=== PATIENT | female | born 1990 | race Caucasian/White ===

== ENCOUNTER 2016-08-23 06:46 | Day surgery (SDC) | payer BC, MEDICAID ==
[2016-08-23] VITALS (10 sets, daily range): BP systolic 104–131; BP diastolic 56–88; PULSE 74–94; RESP 17–25; Ht 152.4 cm; Wt 45.0 kg
[~2016-08-23] VITALS: Ht 152.4 cm; Wt 45.0 kg
[2016-08-23] MEDS ORDERED: CEFAZOLIN 1 GM INJ ONE (07:00)
[2016-08-23] MEDS ORDERED: CEFAZOLIN 2 GM/50 ML (PMX) 50 ML IVPB SCH (07:00)
[2016-08-23] MEDS ORDERED: SOD CHLORIDE 0.9% 1,000 ML IV SCH (07:00)
[2016-08-23 08:03] LABS: INR 0.96; PROTIME 12.8 Sec (12.2-14.2)
[2016-08-23 08:04] LABS: PARTIAL THROMBOPLASTIN TIME 30.8 Sec (25.0-35.0)
[2016-08-23 08:12] LABS: BASOPHIL # 0.1 10^3/ul (0.0-0.1); BASOPHILS % 0.5 % (0.0-2.0); EOSINOPHILS # 0.3 10^3/ul (0.0-0.5); EOSINOPHILS % 3.1 % (0.0-7.0); HEMATOCRIT 39.5 % (37.0-47.0); HEMOGLOBIN 13.5 g/dl (12.0-16.0); LYMPHOCYTES # 1.3 10^3/ul (0.8-2.9); LYMPHOCYTES % 14.3 % (15.0-51.0); MEAN CORPUSCULAR HEMOGLOBIN 31.5 pg (29.0-33.0); MEAN CORPUSCULAR HGB CONC 34.1 g/dl (32.0-37.0); MEAN CORPUSCULAR VOLUME 92.4 fl (82.0-101.0); MEAN PLATELET VOLUME 9.1 fl (7.4-10.4); MONOCYTE # 0.4 10^3/ul (0.3-0.9); MONOCYTES % 4.2 % (0.0-11.0); NEUTROPHIL # 7.2 10^3/ul (1.6-7.5); NEUTROPHILS % 77.9 % (39.0-77.0); PLATELET COUNT 308 10^3/UL (140-440); RED BLOOD COUNT 4.27 10^6/ul (4.20-5.40); RED CELL DISTRIBUTION WIDTH 12.8 % (11.5-14.5); UNCORRECTED WBC 9.3 10^3/ul (4.8-10.8); WHITE BLOOD COUNT 9.3 10^3/ul (4.8-10.8)
[2016-08-23 08:16] LABS: CONDITION 1
[2016-08-23 08:23] LABS: CALCIUM 9.3 mg/dl (8.4-10.2); CREATININE 0.56 mg/dl (0.44-1.00); POTASSIUM 4.3 mmol/L (3.5-5.1)
[2016-08-23] MEDS ORDERED: MIDAZOLAM 1 MG/ML 2 ML INJ ONE (08:38)
[2016-08-23] MEDS ORDERED: LIDOCAINE 2% (SDV) 5 ML INJ ONE (08:38)
[2016-08-23] MEDS ORDERED: PROPOFOL 20 ML ONE (08:38)
[2016-08-23] MEDS ORDERED: DEXAMETHASONE 4 MG/ML 1 ML INJ ONE (09:14)
[2016-08-23] MEDS ORDERED: FENTAnyl 50 MCG/ML VIAL ONE (09:14)
[2016-08-23] MEDS ORDERED: ONDANSETRON 4 MG INJ ONE (09:14)
[2016-08-23] MEDS ORDERED: METOCLOPRAMIDE 10 MG INJ ONE (09:14)
[2016-08-23] MEDS ORDERED: FENTAnyl 50 MCG/ML VIAL IV PRN (09:30)
[2016-08-23] MEDS ORDERED: MEPERIDINE 25 MG INJ IV PRN (09:30)
[2016-08-23] MEDS ORDERED: HYDROmorphONE (0.2 MG/ML) 10ML SYG IV PRN (09:30)
[2016-08-23] MEDS ORDERED: PROCHLORPERAZINE 10 MG INJ IV PRN (09:30)
[2016-08-23] MEDS ORDERED: ONDANSETRON 4 MG INJ IV PRN (09:30)
[2016-08-23] MEDS ORDERED: OXYCODONE/ACETAMINOPHEN (5/325) TAB PO PRN (09:30)
[2016-08-23] MEDS ORDERED: EPHEDrine SULFATE 50 MG/5 ML SYG ONE (09:47)
[2016-08-23] MEDS ORDERED: HYDROCODONE/APAP (7.5/325) TAB PO PRN (10:00)
--- NOTE | 2016-08-23 11:48 | OPR ---
DATE OF OPERATION: 08/23/2016 PREOPERATIVE DIAGNOSIS: Right breast mass, probable fibroadenoma. POSTOPERATIVE DIAGNOSIS: Right breast mass, probable fibroadenoma. OPERATION PERFORMED: Excision of right breast mass. ANESTHESIA: General. ANESTHESIOLOGIST: Tati Martins SURGEON: Rajesh Davila MD SHEARER OPERATOR: Parveen Tejada MD INDICATIONS FOR PROCEDURE: The patient is a 26-year-old female who presented with a palpable mass i n the subareolar location approximately the 11 o'clock position of the right breast. Clinically, it was consistent with probable fibroadenoma. She was counseled as to the risks versus benefits of ex cision. She consented and was scheduled for surgery. DESCRIPTION OF PROCEDURE: The patient was brought to the operating theater, placed under general an esthesia. The right breast was prepped and draped in the usual sterile fashion. A periareolar inci rajan was made from the 12 o'clock location to approximately the 8 o'clock location. Subcutaneous ti ssue was dissected with cautery. Within the breast parenchyma, a well-circumscribed mass consistent with probable benign process such as fibroadenoma or benign phyllodes tumor was identified. It was enucleated with a gloved finger, removed, and sent for permanent pathologic analysis. Wound was ir rigated. Minimal bleeding was controlled with cautery. The area was infiltrated with 0.5% Marcaine local anesthetic with epinephrine, and the skin incision was then closed with 5-0 PDS in subcuticul ar fashion. Dermabond was then applied. The patient tolerated the procedure well. The estimated b lood loss was 10 mL. There were no complications. The patient was transported in stable condition to the recovery room where a circumferential compression dressing was applied. Dictated By: RAJESH DAVILA MD TL/DALTON Conf#: [id number] DID#: [id number]
== END 2016-08-23 11:20 | disposition home or self-care (01) ==
LOC: SDS 06:46
PROVIDERS: ATTEND Surgery Surgical Oncology
DX: N63 Unspecified lump in breast (principal); F41.9 Anxiety disorder, unspecified
CPT/HCPCS: 19120; 80048; 84703; 85025; 85610; 85730; 88307; J0690; J1100; J2250; J2405; J2765; J3010; Z7512; Z7610

== ENCOUNTER 2016-12-19 13:09 | Emergency (ER) | payer BC ==
[~2016-12-19] VITALS: Ht 162.6 cm; Wt 56.8 kg
[2016-12-19 13:19] VITALS: Ht 162.6 cm; Wt 56.8 kg
[2016-12-19] MEDS ORDERED: KETOROLAC 60 MG INJ IM STA (13:36)
[2016-12-19] MEDS ORDERED: ONDANSETRON (ODT) 4 MG TAB ODT STA (13:36)
[2016-12-19 13:53] LABS: ADD SCAN DIFF NO
[2016-12-19 13:56] LABS: BASOPHILS % 0.3 % (0.0-2.0); EOSINOPHILS # 0.2 10^3/ul (0.0-0.5); HEMATOCRIT 36.8 % (37.0-47.0); HEMOGLOBIN 12.1 g/dl (12.0-16.0); LYMPHOCYTES # 1.5 10^3/ul (0.8-2.9); LYMPHOCYTES % 18.3 % (15.0-51.0); MEAN CORPUSCULAR HEMOGLOBIN 30.9 pg (29.0-33.0); MEAN CORPUSCULAR HGB CONC 32.9 g/dl (32.0-37.0); MEAN CORPUSCULAR VOLUME 93.9 fl (82.0-101.0); MEAN PLATELET VOLUME 9.8 fl (7.4-10.4); MONOCYTE # 0.2 10^3/ul (0.3-0.9); MONOCYTES % 2.9 % (0.0-11.0); NEUTROPHIL # 6.1 10^3/ul (1.6-7.5); NEUTROPHILS % 76.2 % (39.0-77.0); PLATELET COUNT 292 10^3/UL (140-415); RED BLOOD COUNT 3.92 10^6/ul (4.20-5.40); RED CELL DISTRIBUTION WIDTH 12.8 % (11.5-14.5)
[2016-12-19 14:15] LABS: ADD UMIC YES; URINE BILIRUBIN (Dip) 1+ (NEGATIVE); URINE BLOOD (Dip) NEGATIVE (NEGATIVE); URINE COLOR YELLOW (YELLOW); URINE GLUCOSE (Dip) NEGATIVE (NEGATIVE); URINE KETONES (Dip) TRACE (NEGATIVE); URINE LEUKOCYTE ESTERASE (Dip) TRACE (NEGATIVE); URINE NITRITE (Dip) NEGATIVE (NEGATIVE); URINE TOTAL PROTEIN (Dip) TRACE (NEGATIVE); URINE UROBILINOGEN (Dip) 0.2 E.U./dL (0.1-1.0)
[2016-12-19 14:17] LABS: ALBUMIN 4.7 g/dl (3.3-4.9); POTASSIUM 3.4 mmol/L (3.5-5.1)
[2016-12-19 14:19] LABS: BILIRUBIN,INDIRECT 1.5 mg/dl (0-1.1); BILIRUBIN,TOTAL 1.5 mg/dl (0.2-1.3); CREATININE 0.65 mg/dl (0.44-1.00)
[2016-12-19 14:20] LABS: ALBUMIN/GLOBULIN RATIO 1.38; CALCIUM 9.3 mg/dl (8.4-10.2); TOTAL PROTEIN 8.1 g/dl (6.1-8.1)
--- NOTE | 2016-12-19 14:27 | RADRPT ---
PROCEDURE: US Pelvis CLINICAL INDICATION: Abdominal Pain, pelvic pain TECHNIQUE: Multiple sonographic images of the pelvis were obtained utilizing a transabdominal and endovaginal technique. The images were reviewed on a PACS workstation. COMPARISON: None. LMP: 11/19/2016 FINDINGS: The uterus is retroverted and measures 8.9 x 4.5 x 2.9 cm. The endometrial echo complex measures 2 mm in thickness. The uterus is heterogeneous and the junctional zone between the endometrium and my ometrium is indistinct. The right ovary measures 2.9 x 1.9 x 2.3 cm. The left ovary measures 2.5 x 2.1 x 2.0 cm. There is no rmal vascular flow in both ovaries. No significant ovarian lesions are seen. No significant pelvic free fluid is identified. IMPRESSION: Heterogeneous uterus with indistinct junctional zone is nonspecific, but suggests adenomyosis. Clin ical correlation is recommended. Bilateral ovaries and adnexa are unremarkable. RPTAT: EE Physician Almas Date Time Electronically viewed and signed by Physician Almas on 12/19/2016 14:27 /
[2016-12-19 14:29] LABS: BACTERIA,URINE FEW; ICTOTEST NEGATIVE (NEGATIVE); MUCUS,URINE MODERATE; URINE RBCS 0-2 /HPF (0)
[2016-12-19] MEDS ORDERED: ONDA4TAB14 PO (14:37)
[2016-12-19] MEDS ORDERED: IBUP-1542 PO (14:37)
[2016-12-19] MEDS ORDERED: HYDR-906 PO (14:37)
--- NOTE | 2016-12-19 14:40 | ERD ---
ER Documentation Chief Complaint Date/Time DATE: 12/19/16 TIME: 14:38 Chief Complaint lower ap x months; n/v; hx of ovarian cyst HPI 26-year-old female is here complaining of lower pelvic pain that she has had for over one year but got worse in the last 3 days. Pain is bilateral. She admits to nausea and vomiting. Her last menstrual period she thinks is 1 month ago. Denies any dysuria hematuria or increased urinary frequency. Denies any fever. She does state she has a history of ovarian cysts. She has not taken any medication for pain. ROS All systems reviewed and are negative except as per history of present illness. Medications Home Meds Active Scripts Ondansetron (Ondansetron Odt) 4 Mg Tab.rapdis, 4 MG PO Q6H Y for NAUSEA AND/OR VOMITING, #20 TAB Prov:ALANA OMER PA-C 12/19/16 Hydrocodone/Acetaminophen ([place] 5-325 Tablet) 1 Each Tablet, 1 EACH PO Q6, #20 TAB Prov:ALANA OMER PA-C 12/19/16 Ibuprofen* (Ibuprofen*) 600 Mg Tablet, 600 MG PO Q6, #30 TAB Prov:ALANA OMER PA-C 12/19/16 Allergies Allergies: Coded Allergies: diphenhydramine (Unverified Allergy, Unknown, UNKNOWN, 08/22/16) PMhx/Soc History of Surgery: Yes (R BREAST BX) Anesthesia Reaction: No Hx Neurological Disorder: No Hx Respiratory Disorders: No Hx Cardiac Disorders: No Hx Psychiatric Problems: No Hx Miscellaneous Medical Probl: No Hx Alcohol Use: No Hx Substance Use: No Hx Tobacco Use: No FmHx Family History: No diabetes Physical Exam Vitals Vital Signs Date Time Temp Pulse Resp B/P Pulse Ox O2 Delivery O2 Flow Rate FiO2 12/19/16 13:19 97.9 80 18 107/71 98 Physical Exam General: well developed, well nourished, alert, nontoxic, no distress Head: normocephalic, atraumatic Neck: Supple, nontender, no lymphadenopathy, no midline tenderness Respiratory: Clear to auscaultation bilaterally, speaks in full sentences, no use of accesory muscles or labored breathing, no rales, ronchi, or wheezing Cardiovascular: RRR, No murmurs GI: soft, non tender, non distended, negative murphys sign, negative mcburneys point tenderness, no cva tenderness bilaterally, no rebound or guarding Back: no midline tenderness, no step offs or bony abnormalities, sensation to light touch in tact Result Diagram: 12/19/16 1338 12/19/16 1338 Results 24 hrs Laboratory Tests Test 12/19/16 13:38 12/19/16 13:56 White Blood Count 8.010^3/ul Red Blood Count 3.9210^6/ul Hemoglobin 12.1g/dl Hematocrit 36.8% Mean Corpuscular Volume 93.9fl Mean Corpuscular Hemoglobin 30.9pg Mean Corpuscular Hemoglobin Concent 32.9g/dl Red Cell Distribution Width 12.8% Platelet Count 04453^3/UL Mean Platelet Volume 9.8fl Neutrophils % 76.2% Lymphocytes % 18.3% Monocytes % 2.9% Eosinophils % 2.0% Basophils % 0.3% Nucleated Red Blood Cells % 0.0/100WBC Neutrophils # 6.110^3/ul Lymphocytes # 1.510^3/ul Monocytes # 0.210^3/ul Eosinophils # 0.210^3/ul Basophils # 0.010^3/ul Nucleated Red Blood Cells # 0.010^3/ul Sodium Level 143mmol/L Potassium Level 3.4mmol/L Chloride Level 103mmol/L Carbon Dioxide Level 26mmol/L Anion Gap 17 Blood Urea Nitrogen 15mg/dl Creatinine 0.65mg/dl Glucose Level 84mg/dl Calcium Level 9.3mg/dl Total Bilirubin 1.5mg/dl Direct Bilirubin 0.00mg/dl Indirect Bilirubin 1.5mg/dl Aspartate Amino Transf (AST/SGOT) 19IU/L Alanine Aminotransferase (ALT/SGPT) 21IU/L Alkaline Phosphatase 50IU/L Total Protein 8.1g/dl Albumin 4.7g/dl Globulin 3.40g/dl Albumin/Globulin Ratio 1.38 Lipase 26U/L Urine Color YELLOW Urine Clarity CLEAR Urine pH 6.0 Urine Specific [place] 1.025 Urine Ketones TRACE Urine Nitrite NEGATIVE Urine Bilirubin 1+ Urine Ictotest NEGATIVE Urine Urobilinogen 0.2 E.U./dL Urine Leukocyte Esterase TRACE Urine Microscopic RBC 0-2/HPF Urine Microscopic WBC 2-5/HPF Urine Epithelial Cells FEW Urine Bacteria FEW Urine Mucus MODERATE Urine Hemoglobin NEGATIVE Urine Glucose NEGATIVE% Urine Total Protein TRACE Current Medications Medications (Trade) Dose Ordered Sig/Sage Route PRN Reason Start Time Stop Time Status Last Admin Dose Admin Ketorolac Tromethamine (Toradol) 30 mg ONCE STAT IM 12/19/16 13:36 12/19/16 13:38 DC 12/19/16 14:21 Ondansetron HCl (Zofran Odt) 4 mg ONCE STAT ODT 12/19/16 13:36 12/19/16 13:38 DC 12/19/16 14:20 Procedures/MDM This 18-year-old female has bilateral pelvic pain. She is afebrile and in no distress and his pain is chronic and she has had it for over one year. I doubt she has PID or ovarian torsion. Ultrasound shows she has adenomyosis. Her labs were unremarkable otherwise. She was discharged with copies of all of her labs and ultrasound reports she can follow with primary care as well as prescription for Zofran and pain medication. She was also given a list of OB/ [facility] clinics where she can follow-up. Recommended this patient follow up with her primary care doctor within 48 hours or return to the emergency room for any worsening of symptoms. However this time I do believe there is suitable for outpatient management. I answered all their questions and they agreed with the plan and were discharged home. Departure Diagnosis: Primary Impression: Adenomyosis Condition: Stable Patient Instructions: Pelvic Pain, Unknown Cause Referrals: [facility] [place] [address] [facility] [address] [place], [place] [phone] OFFICE FAX TRISH MARTÍNEZ [address] [place], [place] [phone] [address] [place] [place] [address] [place], [place] [phone] CUATE MCNALLY [address] [facility], [address] [address] [address] [address] [place], [place] [phone] [facility] [address] [place], [place] [address] [address] [facility] [id number] - [place] [address], [facility] [phone] HUBBARD, ARVIND [address] [facility]. [address], [facility] [address] [address], [facility] [address] [place], [place] [phone] Additional Instructions: Call your primary care doctor TOMORROW for an appointment during the next 1-2 days.See the doctor sooner or return here if your condition worsens before your appointment time. ALANA OMER PA-C December 19, 2016 14:40
== END 2016-12-19 14:48 | disposition home or self-care (01) ==
LOC: FTE 13:09
DX: N80.0 Endometriosis of uterus (principal); R11.2 Nausea with vomiting, unspecified
CPT/HCPCS: 36415; 76856; 80053; 81001; 83690; 85025; 96372; 99285; J1885; Z7610; 81003

== ENCOUNTER 2017-05-07 10:38 | Emergency (ER) | END 2017-05-07 14:36 | disposition home or self-care (01) | DX: R10.32 Left lower quadrant pain (principal); R10.2 Pelvic and perineal pain ==

== ENCOUNTER 2017-07-02 17:30 | Emergency (ER) | payer BC ==
[~2017-07-02] VITALS: Ht 157.5 cm; Wt 48.0 kg
[~2017-07-02 17:30] MED LIST: HYDR-906 PO; IBUP-1542 PO; ONDA4TAB14 PO
[2017-07-02 17:32] VITALS: Ht 157.5 cm; Wt 48.0 kg
--- NOTE | 2017-07-02 19:33 | ERD ---
ER Documentation Chief Complaint Chief Complaint c/o vomiting, pt has coffe on her hand at intake HPI 26-year-old female presents to emergency department for complaints of vomiting episodes, on and off lower abdominal pain on and off for the last 1 week, worse in the last 2 days. Patient had 2 episodes of vomiting today, 2 opacities of vomiting yesterday. Patient does not have any blood in his stool or black site. Patient is vomited blood in the vomit. Patient does not have any sick contacts. Last menstruation was May 18, 2019, as always had irregular periods. Patient denies any vaginal bleeding at this time. ROS All systems reviewed and are negative except as per history of present illness. Medications Home Meds Active Scripts Ondansetron (Ondansetron Odt) 4 Mg Tab.rapdis, 4 MG PO Q6H Y for NAUSEA AND/OR VOMITING, #20 TAB Prov:ALANA OMER PA-C 12/19/16 Hydrocodone/Acetaminophen ([place] 5-325 Tablet) 1 Each Tablet, 1 EACH PO Q6, #20 TAB Prov:ALANA OMER PA-C 12/19/16 Ibuprofen* (Ibuprofen*) 600 Mg Tablet, 600 MG PO Q6, #30 TAB Prov:ALANA OMER PA-C 12/19/16 Allergies Allergies: Coded Allergies: diphenhydramine (Unverified Allergy, Unknown, UNKNOWN, 08/22/16) PMhx/Soc History of Surgery: Yes (R BREAST BX) Anesthesia Reaction: No Hx Neurological Disorder: No Hx Respiratory Disorders: No Hx Cardiac Disorders: No Hx Psychiatric Problems: No Hx Miscellaneous Medical Probl: No Hx Alcohol Use: No Hx Substance Use: No Hx Tobacco Use: No FmHx Family History: No coronary disease, No diabetes, No other Physical Exam Vitals Vital Signs Date Time Temp Pulse Resp B/P Pulse Ox O2 Delivery O2 Flow Rate FiO2 07/02/17 17:32 98.1 100 18 118/71 99 Physical Exam GENERAL: The patient is well developed and appropriate for usual state of health, in no apparent distress. CHEST: Clear to auscultation bilaterally. There are no rales, wheezes or rhonchi. HEART: Regular rate and rhythm. No murmurs, clicks, rubs or gallops. No S3 or S4. ABDOMEN: Soft, nontender and nondistended. Good bowel sounds. No rebound or guarding. No gross peritonitis. No gross organomegaly or masses. No Johnson sign or McBurney point tenderness. BACK: No midline or flank tenderness. EXTREMITIES: Equal pulses bilaterally. There is no peripheral clubbing, cyanosis or edema. No focal swelling or erythema. Full range of motion. Grossly neurovascularly intact. NEURO: Alert and oriented. Cranial nerves 2-12 intact. Motor strength in all 4 extremities with 5/5 strength. Sensation grossly intact. Normal speech and gait. SKIN: There is no apparent rash or petechia. The skin is warm and dry. HEMATOLOGIC AND LYMPHATIC: There is no evidence of excessive bruising or lymphedema. No gross cervical, axillary, or inguinal lymphadenopathy. Result Diagram: 07/02/17200707/02/172007 Results 24 hrs Laboratory Tests Test 07/02/17 20:08 White Blood Count 11.910^3/ul Red Blood Count 3.8710^6/ul Hemoglobin 12.1g/dl Hematocrit 36.2% Mean Corpuscular Volume 93.5fl Mean Corpuscular Hemoglobin 31.3pg Mean Corpuscular Hemoglobin Concent 33.4g/dl Red Cell Distribution Width 12.5% Platelet Count 04049^3/UL Mean Platelet Volume 10.1fl Neutrophils % 81.4% Lymphocytes % 14.4% Monocytes % 2.9% Eosinophils % 0.7% Basophils % 0.2% Nucleated Red Blood Cells % 0.0/100WBC Neutrophils # 9.710^3/ul Lymphocytes # 1.710^3/ul Monocytes # 0.310^3/ul Eosinophils # 0.110^3/ul Basophils # 0.010^3/ul Nucleated Red Blood Cells # 0.010^3/ul Urine Color YELLOW Urine Clarity CLEAR Urine pH 5.0 Urine Specific [place] 1.024 Urine Ketones TRACEmg/dL Urine Nitrite NEGATIVEmg/dL Urine Bilirubin NEGATIVEmg/dL Urine Urobilinogen 2+mg/dL Urine Leukocyte Esterase NEGATIVELeu/ul Urine Hemoglobin NEGATIVEmg/dL Urine Glucose NEGATIVEmg/dL Urine Total Protein NEGATIVEmg/dl Sodium Level 142mmol/L Potassium Level 3.8mmol/L Chloride Level 104mmol/L Carbon Dioxide Level 26mmol/L Anion Gap 16 Blood Urea Nitrogen 12mg/dl Creatinine 0.66mg/dl Glucose Level 110mg/dl Calcium Level 9.5mg/dl Total Bilirubin 1.7mg/dl Direct Bilirubin 0.00mg/dl Indirect Bilirubin 1.7mg/dl Aspartate Amino Transf (AST/SGOT) 20IU/L Alanine Aminotransferase (ALT/SGPT) 35IU/L Alkaline Phosphatase 51IU/L Total Protein 7.4g/dl Albumin 4.7g/dl Globulin 2.70g/dl Albumin/Globulin Ratio 1.74 Lipase 101U/L Current Medications Medications (Trade) Dose Ordered Sig/Sage Route PRN Reason Start Time Stop Time Status Last Admin Dose Admin Ondansetron HCl (Zofran Odt) 4 mg ONCE STAT ODT 07/02/17 20:01 07/02/17 20:02 DC 07/02/17 20:36 Patient was given Zofran here in the emergency department. After treatment, patient was able to tolerate po fluids here in the emergency department without any vomiting. There is no signs and symptoms of dehydration. PROCEDURE: CT ABDOMEN AND PELVIS WITHOUT CONTRAST. CLINICAL INDICATION: Abdominal pain TECHNIQUE: CT scan of the abdomen and pelvis without contrast was performed on a multidetector high-resolution CT scanner. The patient was scanned without intravenous contrast. Coronal and sagittal reformatted images were obtained from the axial source images. Images were reviewed on a high-resolution PACS workstation. The total exam CTDI equals 3.9 mGy and the total exam DLP equals 182.88 mGy-cm. One or more of the following dose reduction techniques were used: Automated exposure control. Adjustment of the mA and/or kV according to patient size. Use of iterative reconstruction technique. DICOM images are available COMPARISON: May 07, 2017 FINDINGS: CT abdomen: The lung bases are clear. The heart size is within limits. There is no significant pericardial effusion. Hepatic morphology is within normal limits. There is a 2.0 cm lesion within the right lobe liver as well as a 1.2 cm within the posterior right lobe liver. The gallbladder is within normal limits. No evidence of intrahepatic or extrahepatic biliary dilatation. The spleen is unremarkable. The pancreas is borderline prominent. Both adrenal glands are within normal limits. Both kidneys are in normal anatomic position. No evidence of obstruction or hydronephrosis. No gross renal/ureteric calculi. The visualized GI tract demonstrate normal caliber loops of small and large bowel. No evidence of bowel obstruction. The appendix is not clearly identified. Several fluid filled loops of small bowel noted within the lower abdomen and pelvis. The unenhanced aorta is unremarkable. There is no significant retroperitoneal lymphadenopathy. CT pelvis: The bladder is within limits. The uterus is mildly prominent. Small amount of free fluid within pelvis. Rectosigmoid colon demonstrates stool. No gross evidence of pelvic lymphadenopathy. The visualized osseous structures, appears to be within normal limits. IMPRESSION: 1. No evidence of bowel obstruction. There are several fluid filled loops of small bowel within the lower abdomen, which may represent gastroenteritis. The appendix is not clearly identified. Evaluation of the abdomen/pelvis is limited due to paucity of intra-abdominal fat. If clinical symptoms persist, or suspicion remains recommend follow-up CT scan with IV and oral contrast. 2. Round 1.2 and 2.0 cm hypodense lesion within the right lobe liver. Possible hemangiomas. Recommend follow-up CT scan with IV contrast following a multi phase liver protocol. 3. Mild prominence of the pancreas. Although this can be within normal limits, consider correlation with amylase and lipase levels to exclude the possibility of early pancreatitis, if clinically indicated. RPTAT: AAPP Physician Luke Date Time Electronically viewed and signed by Physician Luke on 07/02/2017 22:33 JL/ Procedures/MDM Medical Decision Making: Symptoms of abdominal pain nonspecific at this time, most likely is from gastroenteritis is seen in the CT scan abdomen and pelvis, can be also from the right ovarian cyst no symptoms of torsion. There is low suspicion for abdominal emergencies at this time. Patients abdominal exam is normal at this time. Patients radiology exam does not show any abdominal emergencies at this time IV contrast or oral contrast CT scan not indicated at this time since patient's pain is controlled.. There is low suspicion for appendicitis, cholecystitis, abdominal aortic aneurysms or peritonitis at this time. There is low suspicion for sepsis. Patient appears well and is hemodynamically stable. Disposition: Home. Condition: Stable Prescription Bentyl, [place] ibuprofen Zofran Instructions: Patient is advised to take medications as prescribed. Patient is advised to rest, increase fluid intake and do brat diet for next 1-2 days and progress as tolerated. Patient is advised that if symptoms are worse, severe abdominal pain, uncontrolled vomiting, high fever, severe flank pain, worst signs and symptoms, to return to the emergency department immediately. Otherwise, patient can follow up with primary care doctor in 5-7 days. Disclaimer: Inadvertent spelling and grammatical errors are likely due to EHR/ dictation software use and do not reflect on the overall quality of patient care. Also, please note that the electronic time recorded on this note does not necessarily reflect the actual time of the patient encounter. Departure Diagnosis: Primary Impression: Viral gastroenteritis Additional Impression: Right ovarian cyst Condition: Stable Patient Instructions: Gastroenteritis, Viral (6Y-Adult), Ovarian Cyst Additional Instructions: Patient is advised to take medications as prescribed. Patient is advised to rest , increase fluid intake and do brat diet for next 1-2 days and progress as tolerated. Patient is advised that if symptoms are worse, severe abdominal pain , uncontrolled vomiting, high fever, severe flank pain, worst signs and symptoms , to return to the emergency department immediately. Otherwise, patient can follow up with primary care doctor in 5-7 days. JIGNA OLIVAS NP Jul 02, 2017 19:33
[2017-07-02] MEDS ORDERED: ONDANSETRON (ODT) 4 MG TAB ODT STA (20:01)
[2017-07-02 20:30] LABS: BASOPHILS % 0.2 % (0.0-2.0); EOSINOPHILS # 0.1 10^3/ul (0.0-0.5); EOSINOPHILS % 0.7 % (0.0-7.0); HEMATOCRIT 36.2 % (37.0-47.0); HEMOGLOBIN 12.1 g/dl (12.0-16.0); LYMPHOCYTES # 1.7 10^3/ul (0.8-2.9); LYMPHOCYTES % 14.4 % (15.0-51.0); MEAN CORPUSCULAR HEMOGLOBIN 31.3 pg (29.0-33.0); MEAN CORPUSCULAR HGB CONC 33.4 g/dl (32.0-37.0); MEAN CORPUSCULAR VOLUME 93.5 fl (82.0-101.0); MEAN PLATELET VOLUME 10.1 fl (7.4-10.4); MONOCYTE # 0.3 10^3/ul (0.3-0.9); MONOCYTES % 2.9 % (0.0-11.0); NEUTROPHIL # 9.7 10^3/ul (1.6-7.5); NEUTROPHILS % 81.4 % (39.0-77.0); PLATELET COUNT 318 10^3/UL (140-415); RED BLOOD COUNT 3.87 10^6/ul (4.20-5.40); RED CELL DISTRIBUTION WIDTH 12.5 % (11.5-14.5); WHITE BLOOD COUNT 11.9 10^3/ul (4.8-10.8)
[2017-07-02 20:34] LABS: ADD UMIC NO; UR ASCORBIC ACID 40 mg/dL (NEGATIVE); UR BILIRUBIN (Dip) NEGATIVE (NEGATIVE); UR BLOOD (Dip) NEGATIVE (NEGATIVE); UR CLARITY CLEAR (CLEAR); UR COLOR YELLOW (YELLOW); UR GLUCOSE (Dip) NEGATIVE (NEGATIVE); UR KETONES (Dip) TRACE mg/dL (NEGATIVE); UR LEUKOCYTE ESTERASE (Dip) NEGATIVE Leu/ul (NEGATIVE); UR NITRITE (Dip) NEGATIVE (NEGATIVE); UR SPECIFIC GRAVITY (Dip) 1.024 (1.003-1.030); UR TOTAL PROTEIN (Dip) NEGATIVE (NEGATIVE); UR UROBILINOGEN (Dip) 2+ mg/dL (NEGATIVE)
[2017-07-02 20:48] LABS: ALBUMIN 4.7 g/dl (3.3-4.9); ALBUMIN/GLOBULIN RATIO 1.74; BILIRUBIN,INDIRECT 1.7 mg/dl (0-1.1); BILIRUBIN,TOTAL 1.7 mg/dl (0.2-1.3); CALCIUM 9.5 mg/dl (8.4-10.2); CREATININE 0.66 mg/dl (0.44-1.00); POTASSIUM 3.8 mmol/L (3.5-5.1); TOTAL PROTEIN 7.4 g/dl (6.1-8.1)
--- NOTE | 2017-07-02 21:07 | RADRPT ---
PROCEDURE: US Pelvis CLINICAL INDICATION: Pain. TECHNIQUE: Sonographic evaluation of the pelvis was performed utilizing both transabdominal and tr ansvaginal technique. Images were reviewed on the high-resolution PACS workstation. COMPARISON: 05/07/2017 FINDINGS: The uterus is normal in size, echogenicity, and morphology. The uterus is 7.4 x 3.7 x 4.5 cm. The endometrium is thin and normal measuring 2.5 mm in diameter. The right ovary measures 3.6 x 2.5 x 2.9 cm. The left ovary measures 2.8 x 1.2 x 1.9 cm. There is a simple 2.1 cm cyst in the right ovary. Ovaries are otherwise normal in appearance.. Color doppler vascular flow is demonstrated to both ovaries. There are no adnexal masses. There is no free flui d in the pelvis. IMPRESSION: Simple right ovarian cyst. Otherwise negative examination. RPTAT: HMVK .Arthur Crane MD, Date Time Electronically viewed and signed by .Arthur Crane MD, on 07/02/2017 21:06 .K/
--- NOTE | 2017-07-02 22:33 | RADRPT ---
PROCEDURE: CT ABDOMEN AND PELVIS WITHOUT CONTRAST. CLINICAL INDICATION: Abdominal pain TECHNIQUE: CT scan of the abdomen and pelvis without contrast was performed on a multidetector hig h-resolution CT scanner. The patient was scanned without intravenous contrast. Coronal and sagittal reformatted images were obtained from the axial source images. Images were reviewed on a high-resol [employer] PACS workstation. The total exam CTDI equals 3.9 mGy and the total exam DLP equals 182.88 mGy- cm. One or more of the following dose reduction techniques were used: Automated exposure control. Adjustment of the mA and/or kV according to patient size. Use of iterative reconstruction technique. DICOM images are available COMPARISON: May 07, 2017 FINDINGS: CT abdomen: The lung bases are clear. The heart size is within limits. There is no significant pericardial effus ion. Hepatic morphology is within normal limits. There is a 2.0 cm lesion within the right lobe liver as well as a 1.2 cm within the posterior right lobe liver. The gallbladder is within normal limits. No evidence of intrahepatic or extrahepatic biliary dilatation. The spleen is unremarkable. The pancreas is borderline prominent. Both adrenal glands are within normal limits. Both kidneys are in normal anatomic position. No evidence of obstruction or hydronephrosis. No gross renal/ureteric calculi. The visualized GI tract demonstrate normal caliber loops of small and large bowel. No evidence of gita wel obstruction. The appendix is not clearly identified. Several fluid filled loops of small bowel n oted within the lower abdomen and pelvis. The unenhanced aorta is unremarkable. There is no significant retroperitoneal lymphadenopathy. CT pelvis: The bladder is within limits. The uterus is mildly prominent. Small amount of free fluid within pelv is. Rectosigmoid colon demonstrates stool. No gross evidence of pelvic lymphadenopathy. The visualized osseous structures, appears to be within normal limits. IMPRESSION: 1. No evidence of bowel obstruction. There are several fluid filled loops of small bowel within the lower abdomen, which may represent gastroenteritis. The appendix is not clearly identified. Evaluati on of the abdomen/pelvis is limited due to paucity of intra-abdominal fat. If clinical symptoms pers ist, or suspicion remains recommend follow-up CT scan with IV and oral contrast. 2. Round 1.2 and 2.0 cm hypodense lesion within the right lobe liver. Possible hemangiomas. Recommen d follow-up CT scan with IV contrast following a multi phase liver protocol. 3. Mild prominence of the pancreas. Although this can be within normal limits, consider correlation with amylase and lipase levels to exclude the possibility of early pancreatitis, if clinically indic ated. RPTAT: AAPP Physician Luke Date Time Electronically viewed and signed by Ena Butler Physician on 07/02/2017 22:33 JENNIE/
[2017-07-02] MEDS ORDERED: ONDA4TAB14 PO (22:53)
[2017-07-02] MEDS ORDERED: HYDR-906 PO (22:53)
[2017-07-02] MEDS ORDERED: IBUP-1542 PO (22:53)
[2017-07-02] MEDS ORDERED: DICY10CA60 PO (22:53)
[2017-07-02 23:04] VITALS: PULSE 75; RESP 17
== END 2017-07-02 23:05 | disposition home or self-care (01) ==
LOC: FTE 17:30
DX: A08.4 Viral intestinal infection, unspecified (principal); N83.201 Unspecified ovarian cyst, right side; R10.2 Pelvic and perineal pain
CPT/HCPCS: 36415; 74176; 76830; 76856; 80053; 81003; 83690; 85025; 99285; Z7610

== ENCOUNTER 2017-10-01 18:25 | Emergency (ER) | END 2017-10-01 21:00 | disposition home or self-care (01) ==

== ENCOUNTER 2017-10-15 11:07 | Outpatient (CLI) | END 2017-10-15 15:54 | disposition home or self-care (01) ==

== ENCOUNTER 2018-01-21 11:19 | Emergency (ER) | END 2018-01-21 15:28 | disposition home or self-care (01) ==

== ENCOUNTER 2018-04-09 08:50 | Emergency (ER) | END 2018-04-09 12:36 | disposition home or self-care (01) ==

== ENCOUNTER 2018-04-24 08:37 | Emergency (ER) | END 2018-04-24 12:18 | disposition home or self-care (01) ==

== ENCOUNTER 2018-05-28 16:51 | Emergency (ER) | END 2018-05-28 19:27 | disposition home or self-care (01) ==